=== PATIENT | female | born 2000 | race Caucasian/White ===

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

== ENCOUNTER 2022-07-15 23:25 | Emergency (ER) | payer MEDICAID | END 2022-07-16 00:57 | disposition home or self-care (01) | LOC: ERS 23:25 | DX: J06.9 Acute upper respiratory infection, unspecified (principal); Z20.822 Contact with and (suspected) exposure to COVID-19 | CPT/HCPCS: 87804; 99283; U0003; U0005 ==

== ENCOUNTER 2022-10-14 07:05 | Emergency (ER) | payer MEDICAID ==
[2022-10-14] MEDS ORDERED: Dexamethasone 10 MG/ML VIAL ONE (08:30)
== END 2022-10-14 09:09 | disposition home or self-care (01) ==
LOC: ERS 07:05
DX: J06.9 Acute upper respiratory infection, unspecified (principal); J02.8 Acute pharyngitis due to other specified organisms
CPT/HCPCS: 96372; 99283; J1100